=== PATIENT | female | born 2000 | race African-American/Black ===

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

== ENCOUNTER 2022-09-09 13:47 | Emergency (ER) | payer BC, SELFPAY ==
[2022-09-09 13:55] VITALS: BP 125/82; PULSE 79; RESP 16; TEMP 36.9; O2SAT 99; BMI 37.2
--- NOTE | 2022-09-09 14:13 | ED_ITS ---
HPI - Allergic Reaction General: Chief complaint: Allergic Reaction Stated complaint: stung/ throat swelling Time Seen by Provider: 09/09/22 14:00 Source: patient Mode of arrival: ambulatory History of Present Illness: HPI narrative: 22-year-old female presents emergency room she got stung by a wasp earlier 1 bite is on the dorsum of her right hand the other is on the left anterior shoulder. She denies any difficulty breathing or swallowing she did sound like she hyperventilated in route she has no facial swelling or tongue swelling. Onset (ago): minute(s) Exposure: insect bite Associated symptoms: Deny abdominal pain, difficulty breathing, dysphagia, dizziness, facial swelling, hoarseness, itching, lip swelling, nausea, rash, tongue swelling or vomiting Severity: mild Treatment prior to arrival: none Review of Systems Const: Denies: fever(s), chills, body aches, change in appetite, fatigue or malaise ENMT: Denies: hoarseness Card: Denies: chest pain, edema, dyspnea on exertion or orthopnea Resp: Denies: dyspnea, productive cough or non-productive cough GI: Denies: abdominal pain, nausea, vomiting or dysphagia : Denies: flank pain, difficulty voiding, dysuria, urinary frequency or urinary urgency Skin/Breast: Reports: pruritus and erythema Neuro: Denies: dizziness All/Imm: Denies: tongue swelling or facial swelling PFSH ED PFSH: Social History Smoking and tobacco status: never smoked Alcohol intake: never Substance/Drug Use: never Physical Exam Const: GENERAL APPEARANCE: cooperative and comfortable ORIENTATION/CONSCIOUSNESS: Yes awake, Yes oriented to person, Yes oriented to place and Yes oriented to time HENMT: COMMON NORMALS: normocephalic, atraumatic and hearing grossly normal bilaterally HEAD & SCALP: normocephalic and atraumatic Resp: COMMON NORMALS: normal respiratory effort, No retractions, No use of accessory muscles and clear to auscultation bilaterally AUSCULTATION: clear to auscultation bilaterally Cardio: COMMON NORMALS: regular rate, regular rhythm and No murmurs present (Cardio) RATE: regular rate RHYTHM: regular rhythm GI: COMMON NORMALS: Soft to palpation and No hepatosplenomegaly present AUSCULTATION: Yes normoactive bowel sounds PALPATION: Yes Soft to palpation, No Tenderness to palpation present (GI), No Guarding due to palpation present (GI) and Yes No hepatosplenomegaly present Extremity: COMMON NORMALS: normal to inspection, capillary refill normal, no clubbing, cyanosis or edema, no calf tenderness and no pedal edema Neuro: SENSORIUM/ORIENTATION: Yes oriented to person, Yes oriented to place and Yes oriented to time Skin: OTHER: Mild localized erythema in the left anterior shoulder and dorsum of the right hand slightly more swelling into the hand no induration. Course Vital Signs: Vital signs: Vital Signs Temperature 98.4 F 09/09/22 13:55 Pulse Rate 79 09/09/22 13:55 Respiratory Rate 16 09/09/22 13:55 Blood Pressure 125/82 09/09/22 13:55 Pulse Oximetry 99 09/09/22 13:55 Oxygen Delivery Me thod Room Air 09/09/22 13:55 MDM - Allergic Reaction Medical Decision Making Localized reaction to insect bite no systemic symptoms exam unremarkable. Benadryl and topical hydrocortisone as needed Discharge Plan Discharge Patient Disposition: Home Clinical Impression: Insect bite Condition: Stable Prescriptions: No Action No Known Home Medications Discharge Orders: Discharge ED (Routine); Ordered 09/09/22 Ordered By: Jamison Ch Discharge Diet: Usual diet Discharge Activity: Increase activity as tolerated Patient Instructions: Insect Bite or Sting (ED), Opioid Safety, Pain Management Activity Restrictions/Additional Instructions: You are seen for a insect bite in the emergency room you having a mild localized reaction. You can use [id number] topical hydrocortisone or [id number] oral Benadryl along with that if needed. Follow-up as needed. Coding Level of Care Code ED Want Ad Receiver for Zeus Perez
[2022-09-09 14:42] VITALS: BP 125/82; PULSE 79; RESP 16; O2SAT 99
== END 2022-09-09 14:43 | disposition home or self-care (01) ==
PROVIDERS: Emergency Provider Family Medicine
DX: S60.561A Insect bite (nonvenomous) of right hand, initial encounter (principal); W57.XXXA Bitten or stung by nonvenomous insect and other nonvenomous arthropods, initial encounter; Y93.9 Activity, unspecified; Y92.9 Unspecified place or not applicable
CPT/HCPCS: 99282

== ENCOUNTER 2024-03-17 18:54 | Emergency (ER) | payer BC, SELFPAY ==
[2024-03-17 19:20] VITALS: BP 118/69; PULSE 118; RESP 18; TEMP 38.3; O2SAT 97
--- NOTE | 2024-03-17 19:28 | XRR_ITS ---
PROCEDURE INFORMATION: Exam: XR Chest Exam date and time: 03/17/2024 7:31 PM Age: 24 years old Clinical indication: Fever; Additional info: Fever, cough TECHNIQUE: Imaging protocol: Radiologic exam of the chest. Views: 1 view. COMPARISON: CR XR thoracic spine 2V [id number] 07/04/2019 8:48 AM FINDINGS: Lungs: Unremarkable. No consolidation. Pleural spaces: Unremarkable. No pleural effusion. No pneumothorax. Heart/Mediastinum: Unremarkable. No cardiomegaly. Bones/joints: Unremarkable. XR/XR chest 1V portable [id number] IMPRESSION: No acute findings.
[2024-03-17 19:55] LABS: Bilirubin Urine Negative (Negative); Blood Urine 2+ (Negative); Glucose Urine UA Negative (Normal); Ketones Urine Trace (Negative); Leukocyte Esterase Urine 1+ (Negative); Nitrate Urine Negative (Negative); Protein Urine Negative (Negative); Specific Gravity, Urine 1.022 (1.005-1.030); Urine Appearance Clear (CLEAR); Urine Color Yellow (Yellow); Urobilinogen Urine 0.2 mg/dL (Negative); pH Urine 5.5 (5-7)
[2024-03-17 20:01] LABS: HCG Qualitative Urine. Negative (Negative)
[2024-03-17 20:02] LABS: Bacteria Urine None Seen /hpf; Hyaline Casts Urine 0-4 /lpf; RBC Urine 0-2 /hpf (0-2)
[2024-03-17 20:08] LABS: Basophils % 0.3 %; Eosinophils % 0.3 %; Hematocrit 39.9 % (36-47); Lymphocytes # 0.3 10^3/uL (0.8-4.8); Lymphocytes % 4.9 %; Mean Corpuscular HGB Conc 33.6 g/dL (30-55); Mean Corpuscular Volume 83.5 fl (85-98); Monocytes # 0.5 10^3/uL (0.2-0.9); Monocytes % 7.3 %; Neutrophils # 5.73 10^3/uL (1.8-7.7); Neutrophils % 86.9 %; Nucleated Red Blood Cells % 0 %; Platelet Count 217 10^3/cmm (157-399); Red Blood Count 4.78 10^6/uL (3.85-5.65); Red Cell Distribution Width 12.8 % (12.1-15.1); White Blood Count 6.59 10^3/uL (3.29-11.43)
[2024-03-17 20:09] LABS: Add Urine Culture? Yes
[2024-03-17 20:25] LABS: Alanine Aminotransferase 19 U/L (0-33); Albumin Level 4.2 g/dL (3.5-5.2); Alkaline Phosphatase 103 U/L (35-105); Anion Gap 17.6 (5-19); Aspartate Amino Transferase 21 U/L (0-32); Blood Urea Nitrogen 9 mg/dL (6-20); Calcium 9.1 mg/dL (8.5-10.5); Carbon Dioxide 21 mmol/L (22-29); Chloride 101 mmol/L (98-107); Creatinine Clr Calc Pharmacy 164.7523; Globulin 2.8 g/dL (1.3-4.6); Glomerular Filtration Rate 126.6 mL/min (90-130); Glucose 122 mg/dL (65-115); Osmolality Calculated 282 mOsm/kg (285-295); Potassium 3.6 mmol/L (3.5-5.1); Sodium 136 mmol/L (136-145); Total Bilirubin 0.2 mg/dL (0.15-1.2)
[2024-03-17 20:54] VITALS: BP 120/87; PULSE 113; O2SAT 95
--- NOTE | 2024-03-17 20:55 | CTR_ITS ---
PROCEDURE INFORMATION: Exam: CT Chest With Contrast; Diagnostic Exam date and time: 03/17/2024 9:23 PM Age: 24 years old Clinical indication: Fever and shortness of breath; Additional info: SOB, fever, back pain, vaginal bleeding (- preg) TECHNIQUE: Imaging protocol: Diagnostic computed tomography of the chest with contrast. Radiation optimization: All CT scans at this facility use at least one of these dose optimization techniques: automated exposure control; mA and/or kV adjustment per patient size (includes targeted exams where dose is matched to clinical indication); or iterative reconstruction. Contrast material: OMNI 350; Contrast volume: 100 ml; Contrast route: INTRAVENOUS (IV); COMPARISON: CR XR chest 1V portable [id number] 03/17/2024 7:31 PM RADIATION DOSE METRICS: Total DLP (mGy-cm): 1736.98 FINDINGS: Lungs: Unremarkable. No consolidation. No masses. Pleural spaces: Unremarkable. No pneumothorax. No pleural effusion. Heart: Unremarkable. No cardiomegaly. No pericardial effusion. Lymph nodes: Unremarkable. No enlarged lymph nodes. Vasculature: Unremarkable. No aortic aneurysm. Bones/joints: Unremarkable. No acute fracture. Soft tissues: Unremarkable. PROCEDURE INFORMATION: Exam: CT Abdomen And Pelvis With Contrast Exam date and time: 03/17/2024 9:23 PM Age: 24 years old Clinical indication: Fever and shortness of breath; Additional info: SOB, fever, back pain, vaginal bleeding (- preg) TECHNIQUE: Imaging protocol: Computed tomography of the abdomen and pelvis with contrast. Radiation optimization: All CT scans at this facility use at least one of these dose optimization techniques: automated exposure control; mA and/or kV adjustment per patient size (includes targeted exams where dose is matched to clinical indication); or iterative reconstruction. Contrast material: OMNI 350; Contrast volume: 100 ml; Contrast route: INTRAVENOUS (IV); COMPARISON: CR XR chest 1V portable [id number] 03/17/2024 7:31 PM RADIATION DOSE METRICS: Total DLP (mGy-cm): 1736.98 FINDINGS: Liver: Diffuse hepatic steatosis. Gallbladder and biliary ducts: Normal. No calcified stones. No ductal dilation. Pancreas: Normal. No ductal dilation. Spleen: Normal. No splenomegaly. Adrenal glands: Normal. No mass. Kidneys and ureters: Normal. No hydronephrosis. Stomach and bowel: Abnormal wall thickening involving the duodenal and multiple loops of proximal small bowel. Appendix: No evidence of appendicitis. Intraperitoneal space: Unremarkable. No free air. No significant fluid collection. Vasculature: Unremarkable. No abdominal aortic aneurysm. Lymph nodes: Unremarkable. No enlarged lymph nodes. Urinary bladder: Unremarkable as visualized. Reproductive: Unremarkable as visualized. Bones/joints: Unremarkable. No acute fracture. Soft tissues: Unremarkable. CT/CT chest abdpel w/*[id number] IMPRESSION: No acute findings. IMPRESSION: 1. Duodenitis with mild enteritis. 2. Hepatic steatosis.
--- NOTE | 2024-03-17 20:56 | ED_ITS ---
HPI - Fever 2 General: Chief Complaint: Fever Stated Complaint: high fever Time Seen by Provider: 03/17/24 20:46 Source: patient Mode of arrival: ambulatory Limitations: no limitations History of Present Illness: Patient is a 24-year-old female who presents the emergency department complaining of fevers onset this morning. Patient states yesterday she was feeling okay, today has had fevers throughout the day as high as 104. Denies any seizure-like activity. She states she is having diffuse abdominal pain, vaginal spotting, headache and dizziness, and some shortness of breath. She states she has felt short of breath for a week or so now after being diagnosed with viral upper respiratory infection. Denies possibility of , has not taken anything for her fever. Still has her gallbladder and appendix, states that her abdominal pain is diffuse and does extend into her back. She also reports history of kidney infections, states this does not feel similar. She arrives to the emergency department tachycardic, states she normally has a low heart rate. Also has a temp of 101 at triage. She has no pertinent past medical history to report. No changes to bowel habits or urinary symptoms. MD elicited complaint: fever Onset (ago): hour(s) Measured temperature: 104 F Exacerbating factors: nothing Relieving factors: nothing Associated symptoms: Reports abdominal pain and headache(s); Deny flank pain, chills, chest pain, diarrhea, dysuria, nausea or vomiting Related Data Previous Rx's Medication Instructions Recorded cefdinir 300 mg capsule 300 mg PO BID 10 days #20 caps 03/17/24 Allergies Allergy/AdvReac Type Severity Reaction Status Date / Time No Known Allergies Allergy Verified 03/17/24 19:25 Review of Systems 2 General: Reports: 10 or more systems reviewed and unremarkable except in HPI and below Const: Reports: fever(s); Denies: chills, change in appetite, change in weight or diaphoresis ENMT: Denies: throat pain or hoarseness Card: Denies: chest pain, palpitations or lightheadedness Resp: Reports: dyspnea; Denies: productive cough or wheezing GI: Reports: abdominal pain; Denies: nausea, vomiting, diarrhea, constipation, bloating, change in stool character or hematochezia : Reports: vaginal bleeding; Denies: flank pain, difficulty voiding, dysuria, urinary frequency or urinary urgency Musc: Denies: neck pain or back pain Skin/Breast: Denies: rash or new lesions Neuro: Reports: headache(s) and dizziness PFSH ED 2 PFSH: Social History Smoking and tobacco/nicotine status: never used tobacco/nicotine Alcohol intake: never Substance/Drug Use: never Female Reproductive History: Date of last menstrual period: 03/03/24 Physical Exam 2 Const: COMMON NORMALS: no acute distress, patient oriented x3, no limitations, healthy appearing, alert and well nourished GENERAL APPEARANCE: cooperative and comfortable NUTRITIONAL APPEARANCE: obese ORIENTATION/CONSCIOUSNESS: Y es awake HENMT: COMMON NORMALS: normocephalic, atraumatic, hearing grossly normal bilaterally, external ears normal, Normal external nose present, Normal nasal mucous membranes and turbinates present and moist oral mucous membranes HEAD & SCALP: normocephalic and atraumatic NOSE: Normal external nose present and Normal nasal mucous membranes and turbinates present EXTERNAL EAR: Yes external ears normal Eye: COMMON NORMALS: Equal, round and reactive pupils present, EOMs intact bilaterally, conjunctivae normal and normal visual alvarado by confrontation C ONJUNCTIVA: Yes conjunctivae normal PUPIL: Yes Equal, round and reactive pupils present Neck/C-Spine: COMMON NORMALS: full ROM, supple, no meningeal signs and no JVD Resp: COMMON NORMALS: normal respiratory effort, No retractions, No use of accessory muscles and clear to auscultation bilaterally AUSCULTATION: clear to auscultation bilaterally, no crackles, no rales, no rhonchi and no wheezes Cardio: COMMON NORMALS: no JVD, regular rhythm, S1 normal heart sound present, S2 normal heart sound present, No gallops present (Cardio), No clicks present (Cardio), No murmurs present (Cardio), No rub (Cardio) and Peripheral pulses 2+ throughout RATE: tachycardic RHYTHM: regular rhythm HEART SOUNDS: S1 normal heart sound present and S2 normal heart sound present PERIPHERAL PULSES: Peripheral pulses 2+ throughout GI: COMMON NORMALS: Normal to inspection, nondistended, normoactive bowel sounds present, Soft to palpation, No hepatosplenomegaly present and no masses AUSCULTATION: Yes normoactive bowel sounds PALPATION: Yes Soft to palpation, No Guarding due to palpation present (GI), No Rigid due to palpation and Yes No hepatosplenomegaly present RECTAL EXAM: deferred OTHER: Suprapubic tenderness to palpation : COMMON NORMALS: Yes no CVA tenderness BLADDER/KIDNEY EXAM: Yes no CVA tenderness Back/Pelvis: COMMON NORMALS: no CVA tenderness Extremity: COMMON NORMALS: normal to inspection and full ROM Neuro: COMMON NORMALS: patient oriented x3, moves all extremities, no focal motor deficits and no sensory deficits noted SENSORIUM/ORIENTATION: Yes alert MENINGEAL SIGNS: Yes no meningeal signs Psych: COMMON NORMALS: mental status grossly normal, cooperative and speech normal SPEECH: Yes normal speech Skin: COMMON NORMALS: no rashes or lesions noted GENERAL SKIN EXAM: no rashes or lesions noted Course 2 Vital Signs: Vital signs: Vital Signs Temperature 101 F H 03/17/24 19:20 Pulse Rate 120 H 03/17/24 21:41 Respiratory Rate 16 03/17/24 21:23 Blood Pressure 114/82 03/17/24 21:41 Pulse Oximetry 97 03/17/24 21:41 Oxygen Delivery Me thod Room Air 03/17/24 21:41 MDM - Fever Medical Decision Making This patient presented with fevers today. She was tacky and febrile in triage, temperature controlled with Tylenol here in the emergency department and heart rate brought down after IV fluids. White blood cell, CRP, and lactic acid unremarkable. Rest of her CBC and CMP was normal. Urinalysis showing signs of a urinary tract infection with leukocyte and white blood cell in her urine, she was having some bleeding likely this is a hemorrhagic cystitis as her was negative and her last normal menstrual period was a couple of weeks ago. On CT of chest abdomen pelvis there were no acute findings other than some duodenitis, patient was not tender in the epigastrium and does report a history of acid reflux. I have very low suspicion for H. pylori infection or gastric ulcer due to her lack of coughing or vomiting blood. She is COVID-positive viral respiratory panel, this along with the UTI could be explaining her fevers as well as elevated heart rate. Though it is likely she is also dehydrated on top of this. She does feel better after fluids, will treat with antibiotics for UTI and have her follow-up with primary care for general reevaluation later this week. Discussed with her strict return precautions such as if she continues to have uncontrollable fevers, worsening pain or symptoms, or other concerning findings to return to the emergency department. She endorses understanding. Dose of Rocephin given here, she will begin cefdinir tomorrow. Lab Data 03/17/24 20:03 03/17/24 20:03 Radiology Impressions Chest X-Ray 03/17/24 19:28 IMPRESSION: No acute findings. Chest/Abdomen/Pelvis CT 03/17/24 20:55 IMPRESSION: No acute findings. IMPRESSION: 1. Duodenitis with mild enteritis. 2. Hepatic steatosis. Laboratory Results WBC 6.59 10^3/uL (3.29-11.43) 03/17/24 20:03 RBC 4.78 10^6/uL (3.85-5.65) 03/17/24 20:03 Hgb 13.40 g/dL (11.27-16.99) 03/17/24 20:03 Hct 39.9 % (36-47) 03/17/24 20:03 MCV 83.5 fl (85-98) L 03/17/24 20:03 MCH 28.0 pg (27-33) 03/17/24 20: MCHC 33.6 g/dL (30-55) 03/17/24 20:03 RDW 12.8 % (12.1-15.1) 03/17/24 20:03 Plt Count 217 10^3/cmm (157-399) 03/17/24 20:03 MPV 10.0 fL (7.4-10.4) 03/17/24 20:03 Neut % (Auto) 86.9 % 03/17/24 20:03 Lymph % (Auto) 4.9 % 03/17/24 20:03 [place] % (Auto) 7.3 % 03/17/24 20:03 Eos % (Auto) 0.3 % 03/17/24 20:03 Baso % (Auto) 0.3 % 03/17/24 20:03 Neut # (Auto) 5.73 10^3/uL (1.8-7.7) 03/17/24 20:03 Lymph # (Auto) 0.3 10^3/uL (0.8-4.8) L 03/17/24 20:03 [place] # (Auto) 0.5 10^3/uL (0.2-0.9) 03/17/24 20:03 Eos # (Auto) 0.0 10^3/uL (0.0-0.8) 03/17/24 20:03 Baso # (Auto) 0.0 10^3/uL (0.0-0.1) 03/17/24 20:03 Nucleated RBC % (auto) 0 % 03/17/24 20:03 Nucleated RBCs # 0.0 /100WBC 03/17/24 20:03 Sodium 136 mmol/L (136-145) 03/17/24 20:03 Potassium 3.6 mmol/L (3.5-5.1) 03/17/24 20:03 Chloride 101 mmol/L (98-107) 03/17/24 20:03 Carbon Dioxide 21 mmol/L (22-29) L 03/17/24 20:03 Anion Gap 17.6 (5-19) 03/17/24 20:03 BUN 9 mg/dL (6-20) 03/17/24 20:03 Creatinine 0.7 mg/dL (0.5-0.9) 03/17/24 20:03 GFR Calculation 126.6 mL/min (90-130) 03/17/24 20:03 Glucose 122 mg/dL (65-115) H 03/17/24 20:03 Calculated Osmolality 282 mOsm/kg (285-295) L 03/17/24 20:03 Lactic Acid 0.9 mmol/L (0.5-2.2) 03/17/24 21:16 Calcium 9.1 mg/dL (8.5-10.5) 03/17/24 20:03 Total Bilirubin 0.2 mg/dL (0.15-1.2) 03/17/24 20:03 AST 21 U/L (0-32) 03/17/24 20:03 ALT 19 U/L (0-33) 03/17/24 20:03 Alkaline Phosphatase 103 U/L (35-105) 03/17/24 20:03 C-Reactive Protein 22.0 mg/L (0.0-4.9) H 03/17/24 20:03 Total Protein 7.0 g/dL (6.6-8.7) 03/17/24 20:03 Albumin 4.2 g/dL (3.5-5.2) 03/17/24 20:03 Globulin 2.8 g/dL (1.3-4.6) 03/17/24 20:03 HCG, Qual Cancelled 03/17/24 18:30 HCG, Qual Negative (Negative) 03/17/24 18:30 Urine Color Yellow (Yellow) 03/17/24 18:30 Urine Appearance Clear (CLEAR) 03/17/24 18:30 Urine pH 5.5 (5-7) 03/17/24 18:30 Ur Specific Fowler 1.022 (1.005-1.030) 03/17/24 18:30 Urine Protein Negative (Negative) 03/17/24 18:30 Urine Glucose (UA) Negative (Normal) 03/17/24 18:30 Urine Ketones Trace (Negative) 03/17/24 18:30 Urine Blood 2+ (Negative) A 03/17/24 18:30 Urine Nitrate Negative (Negative) 03/17/24 18:30 Urine Bilirubin Negative (Negative) 03/17/24 18:30 Urine Urobilinogen 0.2 mg/dL (Negative) 03/17/24 18:30 Ur Leukocyte Esterase 1+ (Negative) A 03/17/24 18:30 Urine RBC 0-2 /hpf (0-2) 03/17/24 18:30 Urine WBC 11-20 /hpf (0-5) H 03/17/24 18:30 Ur Squamous Epith Cells 6-10 /hpf (0-5) 03/17/24 18:30 Amorphous Sediment Not Reportable 03/17/24 18:30 Urine Bacteria None seen /hpf (NONE) 03/17/24 18:30 Hyaline Casts 0-4 /lpf H 03/17/24 18:30 Adenovirus (PCR) Not detected (NOT DETECT) 03/17/24 19:35 C. pneumoniae DNA (PCR) Not detected (NOT DETECT) 03/17/24 19:35 Coronavirus 229E (PCR) Not detected (NOT DETECT) 03/17/24 19:35 Human Metapneumovir PCR Not detected (NOT DETECT) 03/17/24 19:35 Influenza A (H1) PCR Not detected (NOT DETECT) 03/17/24 19:35 Influ A (H1/09) PCR Not detected (NOT DETECT) 03/17/24 19:35 Influenza A (H3) PCR Not detected (NOT DETECT) 03/17/24 19:35 Influenza Type A (PCR) Not detected (NOT DETECT) 03/17/24 19:35 Influenza Type B (PCR) Not detected (NOT DETECT) 03/17/24 19:35 M. pneumoniae (PCR) Not detected (NOT DETECT) 03/17/24 19:35 Parainfluenza 1 (PCR) Not detected (NOT DETECT) 03/17/24 19:35 Parainfluenza 2 (PCR) Not detected (NOT DETECT) 03/17/24 19:35 Parainfluenza 3 (PCR) Not detected (NOT DETECT) 03/17/24 19:35 Parainfluenza 4 (PCR) Not detected (NOT DETECT) 03/17/24 19:35 RSV Type A (PCR) Not detected (NOT DETECT) 03/17/24 19:35 RSV Type B (PCR) Not detected (NOT DETECT) 03/17/24 19:35 Entero/Rhino (PCR) Not detected (NOT DETECT) 03/17/24 19:35 SARS-CoV-2 (PCR) Detected (NOT DETECT) A 03/17/24 19:35 All radiology interpretation(s) finalized by discharge Discharge Plan Discharge Patient Disposition: Home Clinical Impression: COVID-19 UTI (urinary tract infection) Qualifiers: Urinary tract infection type: acute cystitis Hematuria presence: with hematuria Qualified Code(s): N30.01 - Acute cystitis with hematuria Condition: Stable Prescriptions: New cefdinir 300 mg capsule 300 mg PO BID 10 Days Qty: 20 0RF Discharge Orders: Discharge ED (Routine); Ordered 03/17/24 Ordered By: Francisco Javier [place] Patient Instructions: Urinary Tract Infection in Women (ED), COVID-19 (Coronavirus Disease 2019) (ED) Activity Restrictions/Additional Instructions: Please take antibiotics as prescribed. Drink plenty of fluids. You have been diagnosed with COVID-19, enact contact precautions as we have discussed. Take ibuprofen and/or Tylenol for body aches or fevers. Work note will be provided. If you continue to have worsening of symptoms, please return for reevaluation as we discussed. Follow-up with primary care later this week. Stand Alone Forms: Work/School Release Coding Level of Care Code ED Entry Examiner for Zeus Perez
[2024-03-17] MEDS: sodium chloride 0.9% 1,000 ML 999 ML IV (21:20)
[2024-03-17] MEDS: acetaminophen 500 mg Tablet 1000 MG PO (21:20)
[2024-03-17 21:23] VITALS: BP 120/87; PULSE 108; RESP 16; O2SAT 97
[2024-03-17 21:32] LABS: Adenovirus Not Detected (NOT DETECT); Chlamydia Pneumoniae Not Detected (NOT DETECT); Coronavirus 229E,HKU1,NL63,OC4 Not Detected (NOT DETECT); Human Metapneumovirus Not Detected (NOT DETECT); Human Rhinovirus/Enterovirus Not Detected (NOT DETECT); Influenza A Not Detected (NOT DETECT); Influenza A H1 Not Detected (NOT DETECT); Influenza A H1-2009 Not Detected (NOT DETECT); Influenza A H3 Not Detected (NOT DETECT); Influenza B Not Detected (NOT DETECT); Mycoplasma Pneumoniae Not Detected (NOT DETECT); Parainfluenza Virus Type 1 Not Detected (NOT DETECT); Parainfluenza Virus Type 2 Not Detected (NOT DETECT); Parainfluenza Virus Type 3 Not Detected (NOT DETECT); Parainfluenza Virus Type 4 Not Detected (NOT DETECT); Respiratory Syncytial Virus A Not Detected (NOT DETECT); Respiratory Syncytial Virus B Not Detected (NOT DETECT)
[2024-03-17 21:37] LABS: Lactic Sepsis W/Reflex 0.9 mmol/L (0.5-2.2)
[2024-03-17 21:39] LABS: SARS-COV-2 Detected (NOT DETECT)
[2024-03-17 21:41] VITALS: BP 114/82; PULSE 120; O2SAT 97
[2024-03-17 22:39] VITALS: TEMP 37.1
[2024-03-17] MEDS: cefTRIAXone 1,000 mg SDV 1000 MG IVP (22:39)
[2024-03-17 22:50] VITALS: BP 116/68; PULSE 109; TEMP 37.1; O2SAT 99
== END 2024-03-17 22:52 | disposition home or self-care (01) ==
PROVIDERS: Emergency Medicine; Emergency Provider Physician Assistant
DX: U07.1 COVID-19 (principal)
CPT/HCPCS: 36415; 71045; 71260; 74177; 80053; 81001; 81025; 83605; 85025; 86140; 87086; 87486; 87581; 87633; 96361; 96374; 99285; J0696; J7030

== ENCOUNTER → 2024-10-01 14:04 | Outpatient (BNVA) | payer OTHER, BC, SELFPAY | PROVIDERS: Visit Provider Obstetrics & Gynecology | DX: Z87.42 Personal history of other diseases of the female genital tract (principal); Z01.419 Encounter for gynecological examination (general) (routine) without abnormal findings | CPT/HCPCS: 84146; 84402; 84403; 84443; 84702; 85025; 87624 ==

== ENCOUNTER → 2024-10-08 15:28 | Outpatient (BNVA) | payer OTHER, BC, SELFPAY | PROVIDERS: Visit Provider Obstetrics & Gynecology | DX: N92.6 Irregular menstruation, unspecified (principal); N85.00 Endometrial hyperplasia, unspecified; E28.2 Polycystic ovarian syndrome | CPT/HCPCS: 76830 ==

== ENCOUNTER → 2024-11-06 10:12 | Outpatient (BNVA) | payer OTHER, BC, SELFPAY | PROVIDERS: PCP Family Medicine; Visit Provider Family Medicine | DX: Z00.00 Encounter for general adult medical examination without abnormal findings (principal); Z51.81 Encounter for therapeutic drug level monitoring; Z13.6 Encounter for screening for cardiovascular disorders; E55.9 Vitamin D deficiency, unspecified; R53.81 Other malaise; R53.83 Other fatigue; R73.09 Other abnormal glucose | CPT/HCPCS: 80053; 80061; 82306; 83036; 84439; 84443; 85025 ==

== ENCOUNTER → 2024-12-04 10:38 | Outpatient (BNVA) | payer OTHER, BC, SELFPAY | PROVIDERS: Visit Provider Obstetrics & Gynecology | DX: Z87.42 Personal history of other diseases of the female genital tract (principal); R93.89 Abnormal findings on diagnostic imaging of other specified body structures | CPT/HCPCS: 81025; 88305 ==